=== PATIENT | male | born 1985 | race Caucasian/White ===

== ENCOUNTER 2022-05-17 11:37 | Outpatient (CLI) | payer OTHER, SELFPAY ==
--- NOTE | ~2022-05-17 | PE_ITS ---
EXAMINATION: PET skull to mid thigh DATE: 05/17/2022 13:57 INDICATION: Hodgkin's lymphoma. TECHNIQUE: Blood glucose level was 94 mg/dL. 11.443 mCi of 18-fluorodeoxyglucose (18-FDG) was adminis tered i.v. Low dose computed tomography (CT) images were acquired from the base of the brain to the p roximal thighs for attenuation correction and anatomic localization. Automated exposure control was e mployed. Dose-length product (DLP) was 914 mGy-cm. Positron emission tomography (PET) images were acq uired in the same distribution. COMPARISON: None FINDINGS: Head/neck: There is increased activity in the adenoids and palatine tonsils without abnormal CT corre late, likely physiologic. There are no pathologically enlarged lymph nodes. Chest: There is no pneumonia or pleural effusion. The heart size is normal. No pericardial effusion. There are calcifications in the past stranding the anterior mediastinum, which may be thymus or old t reated lymphoma. There is mild bilateral gynecomastia. The heart size is normal. No pericardial effus ion. There are no pathologically enlarged lymph nodes. There is a normal-sized subcarinal lymph node with maximum SUV of 4.7. Abdomen/pelvis/proximal thighs: The liver is normal. The gallbladder is absent. The spleen is normal in size. The pancreas, adrenal glands, and kidneys are normal. There are no dilated loops of bowel. T here are no pathologically enlarged lymph nodes. There is no free intraperitoneal fluid. There is no osseous malignancy. IMPRESSION: 1. Normal-sized subcarinal lymph node with mildly increased activity. This finding may be a reactive lymph node or less likely lymphoma. Reviewed, dictated and finalized at location A. PERSON IMPRESSION: 1. Normal-sized subcarinal lymph node with mildly increased activity. This find ing may be a reactive lymph node or less likely lymphoma.
[2022-05-17 12:29] LABS: Glucose Point of Care 94 mg/dl (65-105)
== END 2022-05-17 11:38 | disposition home or self-care (01) ==
PROVIDERS: PCP Internal Medicine; Visit Provider Internal Medicine
DX: Z85.71 Personal history of Hodgkin lymphoma (principal)
CPT/HCPCS: 78815; A9552